=== PATIENT | male | born 1970 | race Caucasian/White ===

== ENCOUNTER 2023-10-17 17:19 | Emergency (ER) | payer OTHER, SELFPAY ==
[2023-10-17 17:28] VITALS: BP 129/85
[2023-10-17 17:39] VITALS: BP 129/85
[2023-10-17 17:56] LABS: % Basophils 0.4 % (0-2); % Eosinophils 2.5 % (0-6); % Immature Granulocytes 0.4 % (0-0.5); % Lymphocytes 35.9 % (20.5-51.1); % Monocytes 6.2 % (1.7-9.3); % Neutrophils 54.6 % (42.2-75.2); Absolute Eosinophils 0.2 10^3/uL (0-0.7); Absolute Lymphocytes 2.4 10^3/uL (1.2-3.4); Absolute Monocytes 0.4 10^3/uL (0.1-0.6); Absolute Neutrophils 3.7 10^3/uL (1.4-6.5); Hematocrit 38.6 % (39.0-52.0); Hemoglobin 13.9 g/dL (13.0-18.0); Mean Corpuscular Hgb 30.2 pg (27.0-31.0); Mean Corpuscular Volume 83.9 fL (80.0-94.0); Mean Platelet Volume 10.5 fL (7.4-10.4); Nucleated Red Blood Cells % 0 % (-); Platelet Count 250 10^3/uL (130-400); Red Cell Dist. Width 13.5 % (11.5-14.5); White Blood Cell Count 6.7 10^3/uL (4.8-10.8)
[2023-10-17 18:00] VITALS: BP 127/81
[2023-10-17 18:13] LABS: ALT (SGPT) 26 U/L (0-50); AST (SGOT) 23 U/L (17-59); Alkaline Phosphatase 58 U/L (38-126); Blood Urea Nitrogen 15 mg/dl (9-20); Carbon Dioxide 24 mmol/L (22-30); Chloride 106 mmol/L (98-107); Estimated Creatinine Clearance 108 ml/min; Glucose 131 mg/dl (70-99); Potassium 3.8 mmol/L (3.5-5.1); Sodium 137 mmol/L (135-145); Total Bilirubin 0.5 mg/dl (0.2-1.3); Total Protein 6.4 g/dl (6.3-8.2); eGFR > 60.00
--- NOTE | 2023-10-17 18:51 | ED.GENMED ---
History of Present Illness
General
Chief Complaint: Heart Rate Problem
Source: patient
Time Seen by Provider: 10/17/23 18:12
History of Present Illness
History of Present Illness:
53-year-old male with recent suspicion for supraventricular tachycardia (triage stated atrial fibrillation but patient has no history of this) presenting to the emergency department via EMS after he was at work when he started to experience
palpitations and shortness of breath. When EMS arrived they performed a EKG which showed patient had a heart rate of 192 bpm. Patient was given a 10 mg bolus of IV diltiazem and returned back into normal sinus rhythm and has been persistently rate
controlled around 60 bpm. Patient states that this was the second time since Saturday this happened and he was brought to [facility] Saturday. Patient states at that time he did not have the arrhythmia captured on EKG as his symptoms resolved
after getting to triage. Patient has yet to contact cardiology for follow-up. Patient denies any fevers or recent illnesses. He does note that his sister has a history of some type of dysrhythmia that required a cardiac ablation.
Past History
Past History
ED Past Medical History: Arrthythmia
ED Past Surgical History: Urological and Other
Social History
Tobacco: Non-smoker
Alcohol: None
Drug: None
Personal:
Living: with family
Employment: Employed
Review of Systems
Review of Systems
All Other Systems: ROS reviewed and negative except as documented in HPI and ROS
Phy Exam
Physical Exam
Physical Exam:
GENERAL: Alert , in no apparent distress
EYE: conjunctiva clear
NECK: Supple
ENT: o/p clr, mmm.
CARDIAC: Regular rate and rhythm
LUNGS: Clear breath sounds bilaterally, no acute respiratory distress, no wheezes/rales/rhonchi
NEUROLOGICAL: Alert and oriented
SKIN: Warm and dry, skin intact.
MUSCULOSKELETAL: well perfused.
PSYCH: Normal and appropriate interaction.
Scores
Heart Failure Risk
Heart Failure Risk Score: Not Applicable
Heart Score for Chest Pain Patients
STEMI patient?: Not applicable
Withdrawal Assessment of Alcohol
Withdrawal Assessment Completed?: Not applicable
Course
Orders/Labs/Results
Orders:
Orders
10/17/23 17:21
Electrocardiogram (*1) Urgent
Reason for Study: Chest Pain
EKG- Treatment ONCE
10/17/23 17:37
Complete Blood Count/With Diff Urgent
Comprehensive Metabolic Panel Urgent
TSH Urgent
Abnormal Lab Results
10/17/23
17:37
RBC 4.60 L 10^6/uL
(4.70-6.10)
Hct 38.6 L %
(39.0-52.0)
MPV 10.5 H fL
(7.4-10.4)
Glucose 131 H mg/dl
(70-99)
10/17/23 17:37
10/17/23 17:37
Vital Signs
Initial and Last Documented VS:
Initial Vital Signs
Temp Pulse Resp Pulse Ox
98.5 F 65 12 98
10/17/23 17:23 10/17/23 17:23 10/17/23 17:23 10/17/23 17:23
Last Documented Vital Signs
Temp Pulse Resp BP Pulse Ox
98.5 F 67 17 127/81 98
10/17/23 17:23 10/17/23 18:45 10/17/23 18:45 10/17/23 18:00 10/17/23 18:45
MDM/Problems Addressed
Differential Diagnosis Includes:
Cardiac dysrhythmia, electrolyte disturbance, I do not have concern for ACS presentation
MDM/Problems Addressed:
53-year-old male presenting to the emergency department for evaluation after he was found to be in supraventricular tachycardia by EMS. Was given 10 mg of Cardizem and converted back to a normal sinus rhythm that is rate controlled between 60 and
65 bpm. Presently asymptomatic. This patient's second episode this week. He is not on any medication. Lab work was initiated upon arrival and is unremarkable. Will discuss with cardiology with anticipation of outpatient follow-up and treatment
planning.
Chronic conditions affecting care: Arrhythmia
Acute Exacerbation and/or Progression of Chronic Illness: Arrhythmia
*Pulse Oximetry
Patient hypoxic: no
*EKG
Interpreted by ED Provider?: Yes
Interpretation: normal
Heart Rate: 62
Rate: normal
Rhythm: sinus
Ischemia: no ischemia
*Wool Hat Hydraulicker Interpretation
Rate: normal
Rhythm: sinus
*Critical Care Note
Total Time (30-74mins, 75-104mins- exclusive of procedures): Not Applicable
Patient Management
Discussion with other providers: Buffer Inflated Pad
Escalation/DeEscalation of care consider admission/obs:
Case was discussed with Dr. Grace from [facility] cardiology, send him patient's EKG from here as well as the EKG strips from EMS, he is recommending we treat patient with 25 mg of Toprol daily and to have the patient call the office tomorrow
to schedule a follow-up visit where they will discuss long-term planning. Patient advised on vagal maneuvers as well as return precautions to the ER. He is otherwise stable for discharge home.
ED Attending Note
-
Portions of this chart may have been created with voice recognition software.� Occasional wrong word or��sound alike� substitutions may have occurred due to the inherent limitations of voice recognition software.
Discharge Plan
Departure
Patient Disposition: Home (Routine Discharge)
Date of Disposition: 10/17/23
Time of Disposition: 18:51
Patient with high blood pressure during this ER visit?: No
Discharge Problem:
Paroxysmal supraventricular tachycardia
Instructions: Supraventricular tachycardia (SVT), Chest Pain CBC Follow Up
Prescriptions:
New
metoprolol succinate [Toprol XL] 25 mg tablet extended release 24 hr
25 mg PO DAILY Qty: 30 0RF
Referrals:
Juan Grace MD [Active] -
Emerson Garcia MD [Family Provider] -
Interventions
Interventions:
*Risk Screen - Suicide Last Done: 10/17/23 17:23
*General Assessment Last Done: 10/17/23 17:23
*Neglect/Abuse Screening Last Done: 10/17/23 17:23
*Nursing Disposition Last Done: 10/17/23 19:03
ED- Cardiac Assessment Last Done: 10/17/23 17:25
ED- Pulmonary Assessment Last Done: 10/17/23 17:25
Discharge Date and Time
Discharge Date/Time: 10/17/23 19:04
Print Language: CROATIAN
[2023-10-17 19:29] LABS: TSH 2.18 uIU/ml (0.47-4.68)
== END 2023-10-17 19:04 | disposition home or self-care (01) ==
LOC: EMR 17:19
PROVIDERS: Emergency Medicine; EMERGENCY PHYSICIAN Student in an Organized Health Care Education/Training Program; FAMILY PHYSICIAN Family Medicine
DX: I47.10 Supraventricular tachycardia, unspecified (principal); I48.91 Unspecified atrial fibrillation
CPT/HCPCS: 99283; 80053; 84443; 85025; 93005

== ENCOUNTER 2024-01-31 16:31 | Emergency (ER) | payer OTHER, SELFPAY ==
[2024-01-31 16:35] VITALS: BP 145/85
[2024-01-31 17:07] LABS: % Basophils 0.4 % (0-2); % Eosinophils 1.4 % (0-6); % Immature Granulocytes 0.1 % (0-0.5); % Lymphocytes 28.7 % (20.5-51.1); % Neutrophils 62.4 % (42.2-75.2); Absolute Eosinophils 0.1 10^3/uL (0-0.7); Absolute Lymphocytes 2.2 10^3/uL (1.2-3.4); Absolute Monocytes 0.5 10^3/uL (0.1-0.6); Absolute Neutrophils 4.7 10^3/uL (1.4-6.5); Hematocrit 43.7 % (39.0-52.0); Hemoglobin 15.2 g/dL (13.0-18.0); Mean Corp Hgb Conc. 34.8 g/dL (33.0-37.0); Mean Platelet Volume 10.2 fL (7.4-10.4); Nucleated Red Blood Cells % 0 % (-); Platelet Count 258 10^3/uL (130-400); Red Blood Cell Count 4.91 10^6/uL (4.70-6.10); Red Cell Dist. Width 13.1 % (11.5-14.5); White Blood Cell Count 7.6 10^3/uL (4.8-10.8)
[2024-01-31 17:21] LABS: ALT (SGPT) 23 U/L (0-50); AST (SGOT) 22 U/L (17-59); Albumin 4.7 g/dl (3.5-5.0); Alkaline Phosphatase 49 U/L (38-126); Blood Urea Nitrogen 14 mg/dl (9-20); Calcium 9.3 mg/dl (8.4-10.2); Carbon Dioxide 26 mmol/L (22-30); Chloride 99 mmol/L (98-107); Glucose 107 mg/dl (70-99); Potassium 4.1 mmol/L (3.5-5.1); Sodium 141 mmol/L (135-145); Total Bilirubin 0.8 mg/dl (0.2-1.3); Total Protein 7.3 g/dl (6.3-8.2); eGFR > 60.00
[2024-01-31 17:30] VITALS: BP 131/94
[2024-01-31 17:31] LABS: Troponin I < 0.012 ng/ml
--- NOTE | 2024-01-31 18:05 | ED.GENMED ---
History of Present Illness
General
Chief Complaint: Fainting Sensation
Source: patient
Time Seen by Provider: 01/31/24 17:37
History of Present Illness
History of Present Illness:
53-year-old male presents to the emergency room for the evaluation of chest discomfort. Patient states that around 3 PM he had an episode of a heaviness in top of his chest which lasted about 15 seconds. Symptoms went away but because it was
pronounced he thought he should get checked out. Patient has a history of SVT. He has had 2 episodes requiring emergency room visits. He is known to Dr. Rosario. He has a prescription for metoprolol that he takes as a 'pill in the pocket'.
Currently patient feels back to his baseline. Patient states he was standing when the episode occurred.
Past History
Past History
ED Past Medical History: Arrthythmia
ED Past Surgical History: Urological and Other
Social History
Tobacco: Non-smoker
Alcohol: None
Drug: None
Personal:
Living: with family
Employment: Employed
Phy Exam
Physical Exam
Physical Exam:
General: Awake, Alert, Oriented X3. No acute distress.
Vitals: unremarkable
Head: Atraumatic
Eyes: Pupils equal, EOMI
Throat: Airway intact, no exudates
Neck: Trachea midline
Lungs: Clear and equal b/l
Heart: Regular rate, no murmurs
Abd: Soft, Nontender, No pulsatile mass
Neuro: Nonfocal
Skin: Warm, dry, no rash
Extremities: pulses equal b/l, no edema
Course
Orders/Labs/Results
Orders:
Orders
01/31/24 16:34
Electrocardiogram (*1) Urgent
Reason for Study: Chest Pain
EKG- Treatment ONCE
01/31/24 16:51
Complete Blood Count/With Diff Urgent
Comprehensive Metabolic Panel Urgent
Troponin I Urgent
01/31/24 18:24
ECG [Electrocardiogram (*1)] Urgent
Reason for Study: Vertigo / Dizzy
EKG- Treatment ONCE
01/31/24 18:38
Troponin I Urgent
Abnormal Lab Results
01/31/24
16:51
Glucose 107 H mg/dl
(70-99)
01/31/24 16:51
01/31/24 16:51
Vital Signs
Initial and Last Documented VS:
Initial Vital Signs
Temp Pulse Resp BP Pulse Ox
98.0 F 61 18 145/85 100
01/31/24 16:35 01/31/24 16:35 01/31/24 16:35 01/31/24 16:35 01/31/24 16:35
Last Documented Vital Signs
Temp Pulse Resp BP Pulse Ox
98.0 F 62 16 135/93 100
01/31/24 16:35 01/31/24 20:30 01/31/24 20:30 01/31/24 20:30 01/31/24 20:30
MDM/Problems Addressed
Differential Diagnosis Includes:
psvt, paroxysmal a fib, dehydration, acs
MDM/Problems Addressed:
EKG shows no acute abnormalities. No dysrhythmias noted on the monitoring engineer. Labs unremarkable. Patient stable for discharge and outpatient follow-up with cardiology
*Pulse Oximetry
Patient hypoxic: no
*EKG
Interpreted by ED Provider?: Yes
Interpretation: abnormal
Heart Rate: 54
Rate: bradycardiac
Rhythm: sinus
[place]: normal axis
Interval: normal interval
QRS Pattern: right bundle branch block
Ischemia: no ischemia
*Pipe Processor Interpretation
Rate: bradycardiac
Rhythm: sinus
*Critical Care Note
Total Time (30-74mins, 75-104mins- exclusive of procedures): Not Applicable
ED Attending Note
-
Portions of this chart may have been created with voice recognition software.� Occasional wrong word or��sound alike� substitutions may have occurred due to the inherent limitations of voice recognition software.
Discharge Plan
Departure
Patient Disposition: Home (Routine Discharge)
Date of Disposition: 01/31/24
Time of Disposition: 19:36
Patient with high blood pressure during this ER visit?: No
Condition: Good
Discharge Problem:
Chest pain
Instructions: Chest Pain CBC Follow Up
Prescriptions:
No Action
metoprolol succinate [Toprol XL] 25 mg tablet extended release 24 hr
25 mg PO DAILY Qty: 30 0RF
Referrals:
Emerson Garcia MD [Family Provider] -
Interventions
Interventions:
*Risk Screen - Suicide Last Done: 01/31/24 17:35
*General Assessment Last Done: 01/31/24 17:35
*Neglect/Abuse Screening Last Done: 01/31/24 17:35
ED- Fall Risk Assessment Last Done: 01/31/24 17:35
*ED COVID-19 Vaccine History Last Done: 01/31/24 19:26
*Nursing Disposition Last Done: 01/31/24 20:39
ED- Cardiac Assessment Last Done: 01/31/24 17:35
ED- Neurological Assessment Last Done: 01/31/24 17:35
Discharge Date and Time
Discharge Date/Time: 01/31/24 20:41
Print Language: [place]AST [place]
[2024-01-31 19:17] LABS: Troponin I < 0.012 ng/ml
[2024-01-31 19:29] VITALS: BMI 26.2
[2024-01-31 20:30] VITALS: BP 135/93
== END 2024-01-31 20:41 | disposition home or self-care (01) ==
LOC: EMR 16:31
PROVIDERS: Emergency Medicine; EMERGENCY PHYSICIAN Emergency Medicine; FAMILY PHYSICIAN Family Medicine
DX: R07.89 Other chest pain (principal)
CPT/HCPCS: 99284; 80053; 84484; 85025; 93005

== ENCOUNTER → 2024-02-21 10:26 | Outpatient (REF) | payer OTHER, SELFPAY | LOC: RAD 10:26 | PROVIDERS: ATTENDING PHYSICIAN Internal Medicine Cardiovascular Disease; FAMILY PHYSICIAN Family Medicine | DX: I47.29 Other ventricular tachycardia (principal) | CPT/HCPCS: 75574; Q9967 ==

== ENCOUNTER → 2024-11-13 08:20 | Outpatient (REF) | payer OTHER, SELFPAY | LOC: PAVMRI 08:20 | PROVIDERS: ATTENDING PHYSICIAN Internal Medicine Cardiovascular Disease; FAMILY PHYSICIAN Family Medicine | DX: I47.29 Other ventricular tachycardia (principal) | CPT/HCPCS: 75561; 75565; A9585 ==